=== PATIENT | female | born 1960 | race African-American/Black ===

== ENCOUNTER 2025-04-07 19:48 | Emergency (ER) | payer BC, OTHER ==
[~2025-04-07] VITALS: Ht 160 cm; Wt 76.1 kg
[2025-04-07 19:51] VITALS: BP 148/78; PULSE 73; RESP 16; TEMP 36.7; O2SAT 100; O2SAT 99
[2025-04-07] MEDS ORDERED: OLME-23 MT (19:57)
[2025-04-07 20:51] LABS: BASOPHILS % 1.1 % (0.0-2.0); EOSINOPHILS % 2.6 % (0.0-5.0); HEMATOCRIT. 35.5 % (36.0-48.0); HEMOGLOBIN. 12.0 g/dL (12.0-16.0); LYMPHOCYTES % 34.9 % (20.0-50.0); MEAN PLATELET VOLUME 8.5 fl (7.4-10.4); MONOCYTES % 12.9 % (2.0-8.0); NEUTROPHILS % 48.5 % (40.0-76.0); PLATELET 285 x1000/uL (130-400); RED BLOOD CELL COUNT 3.74 mill/uL (4.2-5.4); RED CELL DISTRIBUTION WIDTH 13.9 % (11.6-14.6)
[2025-04-07 21:11] LABS: CREATININE 1.5 mg/dL (0.6-1.0); TROPONIN I HIGH SENSITIVITY < 4 ng/L (3.0-34); UREA NITROGEN BLOOD 17 mg/dL (9-23)
[2025-04-07] MEDS: ONDANSETRON 4MG ODT PO ONE (21:28)
[2025-04-07] MEDS: MAGNESIUM/ALUMINUM HYDROXIDE/SIMETHICONE 30ML UDC PO ONE (21:28)
[2025-04-07] MEDS: FAMOTIDINE 20MG TABLET PO ONE (21:28)
== END 2025-04-07 21:25 | disposition home or self-care (01) ==
LOC: ER 19:48
DX: R07.9 Chest pain, unspecified (principal); I10 Essential (primary) hypertension; Z79.899 Other long term (current) drug therapy; Z90.710 Acquired absence of both cervix and uterus
CPT/HCPCS: 36415; 71045; 80048; 84484; 85025; 85379; 93005; 99285